=== PATIENT | female | born 1985 | race Two or more races ===

== ENCOUNTER 2022-10-13 13:45 | Emergency (ER) | payer OTHER ==
[~2022-10-13] VITALS: Ht 162.6 cm; Wt 81.4 kg
[2022-10-13 15:17] VITALS: BP 133/74
[2022-10-13] MEDS ORDERED: AZIT500T66 PO ×3 (15:17→16:04)
[2022-10-13] MEDS ORDERED: PROM1SOL4 PO ×3 (15:17→16:04)
== END 2022-10-13 15:30 | disposition home or self-care (01) ==
LOC: ER 13:45
DX: J02.9 Acute pharyngitis, unspecified (principal); J04.0 Acute laryngitis
CPT/HCPCS: 71045